=== PATIENT | male | born 1950 | race Caucasian/White ===

== ENCOUNTER 2021-03-12 01:37 | Emergency (ER) | payer OTHER ==
[~2021-03-12] VITALS: Ht 177.8 cm; Wt 79.4 kg
[2021-03-12] MEDS ORDERED: ACETAMINOPHEN 500 MG TAB PO ONE (02:00)
[2021-03-12] MEDS ORDERED: SODIUM CHLORIDE 0.9% 1,000 ML IV ONE (03:00)
[2021-03-12] MEDS ORDERED: ACETAMINOPHEN 650 MG RECT SUPP PR ONE (03:00)
[2021-03-12 03:30] LABS: Basophils # (auto) 0 10 ^3/uL (0-0.2); Eosinophils # (auto) 0 10 ^3/uL (0-0.8); Hemoglobin 19.1 g/dL (13.5-17.5); Lymphocytes # (auto) 1.2 10 ^3/uL (0.4-5.4); Red Cell Distribution Width 12.4 % (11.8-14.3); Urine Bacteria NONE SEEN /hpf (None Seen); Urine Blood 2+ /uL (Negative); Urine Specific Gravity 1.015 (1.001-1.035); Urine WBC 2 /hpf (0 - 3)
[2021-03-12] MEDS ORDERED: dilTIAZem 25 MG/5 ML VIAL IV ONE ×2 (03:30→04:00)
[2021-03-12] MEDS ORDERED: PIPERACILLIN-TAZOB 3.375GM 100 ML IV ONE (03:30)
[2021-03-12] MEDS ORDERED: VANCOMYCIN 1GM/250ML 250 ML IV ONE (03:30)
[2021-03-12 03:32] LABS: Basophils % (auto) 0.2 % (0.0-2.0); Hematocrit 54.6 % (41.0-53.0); Mean Corpuscular Hemoglobin 33.2 pg (28.0-32.0); Mean Corpuscular Volume 94.8 fL (80.0-100.0); Monocytes # (auto) 1.7 10 ^3/uL (0-1.3); Monocytes % (auto) 9.4 % (0.0-12.0); Neutrophils # (auto) 14.7 10 ^3/uL (1.6-8.6); Neutrophils % (auto) 83.4 % (37.0-80.0); Nucleated Red Blood Cells % 0.3 %; Red Blood Cells 5.76 10^6/uL (4.5-5.90); White Blood Cell 17.6 10^3/uL (4.4-10.8)
[2021-03-12 03:56] LABS: Lactic Acid w/Reflex 3.2 mmol/L (0.4-2.0)
[2021-03-12] MEDS ORDERED: dilTIAZem 125mg/125ml BAG KIT 125 ML IV ONE (04:00)
[2021-03-12 04:05] LABS: INR 1.21 (0.9-1.15)
[2021-03-12] MEDS ORDERED: PROPOFOL 100 ML IV ONE (04:09)
[2021-03-12] MEDS ORDERED: ETOMIDATE (2MG/ML) 20ML VIAL IV ONE ×2 (04:09→05:15)
[2021-03-12] MEDS ORDERED: SUCCINYLCHOLINE CHLORIDE 20 MG/ML 10ML VIAL IV ONE ×2 (04:10→05:15)
[2021-03-12 04:19] LABS: Alanine Aminotransferase 24 U/L (16-61); Alkaline Phosphatase 101 U/L (45-117); Anion Gap 12 (5-15); Aspartate Aminotransferase 34 U/L (15-37); BUN/Creatinine Ratio 18.6; Bilirubin, Total 2.6 mg/dL (0.2-1.0); Blood Urea Nitrogen 19 mg/dL (7-18); Calcium 9.8 mg/dL (8.5-10.1); Carbon Dioxide 19 mmol/L (21-32); Chloride 106 mmol/L (98-107); GFR African American 93 mL/min; GFR Non-African American 77 mL/min; Glucose 132 mg/dL (74-106); Potassium 3.6 mmol/L (3.5-5.1); Sodium 137 mmol/L (136-145); Total Protein 7.5 g/dL (6.4-8.2)
[2021-03-12 04:20] LABS: Magnesium 2.2 mg/dL (1.6-2.6)
[2021-03-12 04:44] VITALS: BP 114/78
[2021-03-12] MEDS ORDERED: ACETAMINOPHEN 650 MG RECT SUPP PR PRN (05:15)
[2021-03-12] MEDS ORDERED: VANCOMYCIN PER PHARMACY 0 MG IV SCH (05:15)
[2021-03-12] MEDS ORDERED: PROPOFOL 100 ML IV SCH (05:15)
[2021-03-12] MEDS ORDERED: DEXTROSE (50%) 50ML SYRG IV PRN (05:15)
[2021-03-12] MEDS ORDERED: ONDANSETRON HCL 4 MG/2 ML VIAL IV PRN (05:15)
[2021-03-12] MEDS ORDERED: SODIUM CHLORIDE 0.9% 1,000 ML IV SCH (05:15)
[2021-03-12] MEDS ORDERED: SODIUM CHLORIDE 0.9% 500 ML IV ONE (05:30)
[2021-03-12 06:15] VITALS: BP 116/72
[2021-03-12] MEDS ORDERED: InsuLIN REG 1unit/0.01ml Soln (100units/ml) SC SCH (07:00)
[2021-03-12] MEDS ORDERED: ACCU-CHEK COMFORT CURVE STRIP VI SCH (07:00)
[2021-03-12] MEDS ORDERED: FUROSEMIDE 20 MG/2 ML VIAL IV SCH (10:00)
[2021-03-12] MEDS ORDERED: FAMOTIDINE (10MG/ML) 2ML VL IV SCH (10:00)
[2021-03-12] MEDS ORDERED: HEPARIN SODIUM (PORCINE) 5000 UNITS/ML 1ML VIAL SC SCH (10:00)
[2021-03-12] MEDS ORDERED: PIPERACILLIN-TAZOB 3.375GM 100 ML IV SCH (14:00)
== END 2021-03-12 06:33 ==
LOC: EDBD 01:37 → ER 01:37 → EDUNIT# 01:37 → ER 06:33
DX: S06.370A Contusion, laceration, and hemorrhage of cerebellum without loss of consciousness, initial encounter (principal); A41.9 Sepsis, unspecified organism; R41.82 Altered mental status, unspecified; I48.20 Chronic atrial fibrillation, unspecified; Z20.822 Contact with and (suspected) exposure to COVID-19; W18.39XA Other fall on same level, initial encounter; Y93.89 Activity, other specified; Y92.89 Other specified places as the place of occurrence of the external cause; Y99.8 Other external cause status
CPT/HCPCS: 31500; 36415; 36600; 70450; 71045; 72125; 80053; 81001; 82805; 82962; 83605; 83735; 83880; 84484; 85025; 85379; 85610; 87040; 87070; 87086; 87205; 87426; 93005; 96361; 96365; 96367; 96368; 96375; 99291; J0330; J2543; J2704; J3370; J7030; 94002

== ENCOUNTER 2024-01-29 15:42 | Inpatient (IN) | payer MEDICARE, OTHER ==
[~2024-01-29] VITALS: Ht 177.8 cm; Wt 81.2 kg
[2024-01-29 18:37] LABS: Basophils # (auto) 0 10 ^3/uL (0-0.2); Basophils % (auto) 0.1 % (0.0-2.0); Eosinophils # (auto) 0 10 ^3/uL (0-0.8); Eosinophils % (auto) 0.1 % (0.0-7.0); Hematocrit 50.7 % (41.0-53.0); Hemoglobin 17.3 g/dL (13.5-17.5); Lymphocytes # (auto) 1.6 10 ^3/uL (0.4-5.4); Lymphocytes % (auto) 8.3 % (10.0-50.0); Mean Corpuscular Hemoglobin 33.3 pg (28.0-32.0); Mean Corpuscular Hgb Conc. 34.1 g/dL (32.0-36.0); Mean Corpuscular Volume 97.6 fL (80.0-100.0); Monocytes # (auto) 2.6 10 ^3/uL (0-1.3); Monocytes % (auto) 13.2 % (0.0-12.0); Neutrophils # (auto) 15.4 10 ^3/uL (1.6-8.6); Neutrophils % (auto) 78.3 % (37.0-80.0); Platelet Count (auto) 163 10^3/uL (140-450); Red Blood Cells 5.19 10^6/uL (4.5-5.90); White Blood Cell 19.7 10^3/uL (4.4-10.8)
[2024-01-29 18:54] LABS: Alanine Aminotransferase 178 U/L (7-40); Albumin 4.2 g/dL (3.2-4.8); Alkaline Phosphatase 109 U/L (46-116); Anion Gap 13 (5-15); Aspartate Aminotransferase 513 U/L (13-40); Bilirubin, Total 2.9 mg/dL (0.2-1.0); Blood Alcohol < 3.0 mg/dL (<10); Calcium 10.7 mg/dL (8.7-10.4); Carbon Dioxide 19 mmol/L (20-31); Chloride 116 mmol/L (98-107); Glucose 106 mg/dL (74-106); Magnesium 2.7 mg/dL (1.6-2.6); Potassium 4.5 mmol/L (3.5-5.1); Sodium 148 mmol/L (136-145); Total Protein 6.3 g/dL (5.7-8.2)
[2024-01-29 19:10] LABS: Creatine Kinase IFCC 12645 U/L (46-171)
[2024-01-29 19:15] LABS: Blood Urea Nitrogen 91 mg/dL (9-23); Lactic Acid w/Reflex 2.2 mmol/L (0.4-2.0)
[2024-01-29 19:30] VITALS: PULSE 108; RESP 22; O2SAT 93
[2024-01-29] MEDS: SODIUM CHLORIDE 0.9% 1,000 ML IV ONE ×2 (20:34)
[2024-01-29] MEDS: FUROSEMIDE 20 MG/2 ML VIAL IV ONE (20:34)
[2024-01-29] MEDS: LORazepam 2MG/ML-1ML VIAL IV ONE (21:45)
[2024-01-29] MEDS: LORazepam 2MG/ML-1ML VIAL ONE (21:45)
[2024-01-29] MEDS ORDERED: NITROGLYCERIN 0.4 MG SL TAB SL PRN (23:00)
[2024-01-29] MEDS ORDERED: ONDANSETRON HCL 4 MG/2 ML VIAL IV PRN (23:00)
[2024-01-29] MEDS ORDERED: ACETAMINOPHEN 325 MG TAB PO PRN (23:00)
[2024-01-29] MEDS ORDERED: MORPHINE SULFATE INJ 2 MG/ml SYRG IV PRN (23:00)
[2024-01-29] MEDS: SOD CHL 0.45% 1,000 ML IV SCH (23:28)
[2024-01-29] MEDS: LACTATED RINGER'S 1,000 ML IV ONE (23:28)
[2024-01-30 00:13] LABS: Alanine Aminotransferase 156 U/L (7-40); Albumin 3.7 g/dL (3.2-4.8); Alkaline Phosphatase 88 U/L (46-116); Anion Gap 11 (5-15); Aspartate Aminotransferase 418 U/L (13-40); BUN/Creatinine Ratio 25.3 (10.0-20.0); Calcium 9.3 mg/dL (8.7-10.4); Carbon Dioxide 18 mmol/L (20-31); Chloride 116 mmol/L (98-107); Glucose 98 mg/dL (74-106); Potassium 3.9 mmol/L (3.5-5.1); Sodium 145 mmol/L (136-145)
[2024-01-30 00:14] LABS: Blood Urea Nitrogen 62 mg/dL (9-23); Total Protein 5.7 g/dL (5.7-8.2)
[2024-01-30] MEDS: dilTIAZem 25 MG/5 ML VIAL IV ONE (01:33)
[2024-01-30] MEDS: dilTIAZem 125mg/125ml BAG KIT 125 ML IV SCH (02:34)
[2024-01-30] MEDS: AMIODARONE BOLUS KIT 100 ML IV ONE ×2 (03:08→07:51)
[2024-01-30] MEDS: AMIODARONE 450mg/250ml AE 250 ML IV SCH ×2 (03:15→13:31)
[2024-01-30 03:20] LABS: Urine Bacteria None Seen /hpf (None Seen)
[2024-01-30 03:43] LABS: Amphetamine Screen, Urine Neg (NEGATIVE); Barbiturate Scree,Urine Neg (NEGATIVE); Benzodiazephine Screen, Urine Neg (NEGATIVE); Cannabinoid Screen, Urine Neg (NEGATIVE); Cocaine Screen, Urine Neg (NEGATIVE); Opiate Scree,Urine Neg (NEGATIVE); Phencyclidine Screen, Urine Neg (NEGATIVE)
[2024-01-30 04:05] LABS: Urine Amorphous Crystal FEW /hpf (None Seen); Urine Blood 2+ /uL (Negative); Urine Clarity Clear (Clear); Urine Color Light-Yellow (Yellow); Urine Protein, UAD Negative (Negative); Urine Specific Gravity 1.012 (1.001-1.035); Urine Urobilinogen Normal (Negative); Urine WBC 1 /hpf (0 - 3)
[2024-01-30 04:29] LABS: Basophils # (auto) 0 10 ^3/uL (0-0.2); Basophils % (auto) 0.4 % (0.0-2.0); Eosinophils # (auto) 0.1 10 ^3/uL (0-0.8); Eosinophils % (auto) 1.2 % (0.0-7.0); Hematocrit 43.8 % (41.0-53.0); Lymphocytes # (auto) 1.5 10 ^3/uL (0.4-5.4); Lymphocytes % (auto) 12.3 % (10.0-50.0); Mean Corpuscular Hemoglobin 33.1 pg (28.0-32.0); Mean Corpuscular Hgb Conc. 34.4 g/dL (32.0-36.0); Mean Corpuscular Volume 96.4 fL (80.0-100.0); Monocytes # (auto) 1.5 10 ^3/uL (0-1.3); Monocytes % (auto) 12.3 % (0.0-12.0); Neutrophils # (auto) 9.2 10 ^3/uL (1.6-8.6); Neutrophils % (auto) 73.8 % (37.0-80.0); Nucleated Red Blood Cells % 0.1 %; Platelet Count (auto) 121 10^3/uL (140-450); Red Blood Cells 4.54 10^6/uL (4.5-5.90); Red Cell Distribution Width 12.8 % (11.8-14.3); White Blood Cell 12.5 10^3/uL (4.4-10.8)
[2024-01-30 04:47] LABS: Alanine Aminotransferase 157 U/L (7-40); Albumin 3.6 g/dL (3.2-4.8); Alkaline Phosphatase 84 U/L (46-116); Anion Gap 11 (5-15); Aspartate Aminotransferase 409 U/L (13-40); BUN/Creatinine Ratio 29.4 (10.0-20.0); Blood Urea Nitrogen 62 mg/dL (9-23); Calcium 9.3 mg/dL (8.7-10.4); Carbon Dioxide 20 mmol/L (20-31); Chloride 115 mmol/L (98-107); Glucose 88 mg/dL (74-106); Potassium 3.8 mmol/L (3.5-5.1); Sodium 146 mmol/L (136-145)
[2024-01-30 04:48] LABS: Bilirubin, Total 3.4 mg/dL (0.2-1.0); Total Protein 5.5 g/dL (5.7-8.2)
[2024-01-30] MEDS ORDERED: DIPHENOXYLATE W/ATROPINE 2.5 MG TAB PO PRN ×2 (09:00)
[2024-01-30] MEDS ORDERED: AMIODARONE 450mg/250ml AE 250 ML IV SCH (09:15)
[2024-01-30 09:38] LABS: Magnesium 2.4 mg/dL (1.6-2.6)
[2024-01-30 09:39] LABS: Phosphorus 3.8 mg/dL (2.4-5.1)
[2024-01-30 09:51] LABS: Protein, Urine 20.7 mg/dL (1-14)
[2024-01-30 09:54] LABS: Creatinine, Urine 47.77 mg/dL (30.0-125.0); Urine Protein/Creatinine Ratio 0.43
[2024-01-30] MEDS: APIXABAN 2.5 MG TAB PO SCH (10:13)
[2024-01-30] MEDS: METOPROLOL SUCCINATE XL 50 MG TAB PO SCH (10:13)
[2024-01-30 10:23] LABS: Uric Acid 9.9 mg/dL (3.7-9.2)
[2024-01-30] MEDS: SOD CHL 0.45% 1,000 ML IV SCH (13:45)
[2024-01-30] MEDS: cefTRIAXone 1GM/50ML D5W 50 ML IV ONE (14:19)
[2024-01-30 19:20] VITALS: PULSE 56; RESP 22; O2SAT 93
[2024-01-30] MEDS: ATORVASTATIN 20 MG TAB PO SCH (21:50)
[2024-01-30 23:13] VITALS: BP 129/85; PULSE 56; RESP 19; TEMP 97.8; O2SAT 97
[2024-01-31] VITALS (10 sets, daily range): BP systolic 105–135; BP diastolic 55–82; PULSE 54–82; RESP 17–19; TEMP 97.8–98.5; O2SAT 93–97
[2024-01-31 09:16] LABS: Alanine Aminotransferase 152 U/L (7-40); Albumin 3.4 g/dL (3.2-4.8); Alkaline Phosphatase 80 U/L (46-116); Anion Gap 7 (5-15); Aspartate Aminotransferase 297 U/L (13-40); BUN/Creatinine Ratio 29.8 (10.0-20.0); Bilirubin, Total 3.8 mg/dL (0.2-1.0); Calcium 9.6 mg/dL (8.7-10.4); Carbon Dioxide 24 mmol/L (20-31); Chloride 112 mmol/L (98-107); Glucose 98 mg/dL (74-106); Potassium 3.7 mmol/L (3.5-5.1); Sodium 143 mmol/L (136-145); Total Protein 5.4 g/dL (5.7-8.2)
[2024-01-31] MEDS: AMIODARONE HCL 200 MG TAB PO SCH (09:22)
[2024-01-31] MEDS: cefTRIAXone 1GM/50ML D5W 50 ML IV SCH (09:22)
[2024-01-31 09:23] LABS: Blood Urea Nitrogen 31 mg/dL (9-23)
[2024-01-31] MEDS ORDERED: AMIODARONE HCL 200 MG TAB PO SCH (10:00)
[2024-01-31] MEDS ORDERED: ATOR-507 PO (12:21)
[2024-01-31] MEDS ORDERED: MET25T PO (12:21)
[2024-01-31] MEDS ORDERED: APIX2.5T PO (12:21)
[2024-01-31] MEDS ORDERED: AMIO200T33 PO (12:21)
[2024-02-01 01:00] VITALS: BP 115/71; PULSE 54; RESP 17; TEMP 98.1; O2SAT 93
[2024-02-01 05:00] VITALS: BP 109/73; PULSE 54; RESP 19; TEMP 98.3; O2SAT 91
[2024-02-01 06:13] LABS: Basophils # (auto) 0 10 ^3/uL (0-0.2); Basophils % (auto) 0.4 % (0.0-2.0); Eosinophils # (auto) 0.2 10 ^3/uL (0-0.8); Eosinophils % (auto) 2.6 % (0.0-7.0); Hematocrit 38.8 % (41.0-53.0); Hemoglobin 13.8 g/dL (13.5-17.5); Lymphocytes # (auto) 0.8 10 ^3/uL (0.4-5.4); Lymphocytes % (auto) 11.5 % (10.0-50.0); Mean Corpuscular Hemoglobin 33.6 pg (28.0-32.0); Mean Corpuscular Hgb Conc. 35.5 g/dL (32.0-36.0); Mean Corpuscular Volume 94.6 fL (80.0-100.0); Monocytes # (auto) 0.9 10 ^3/uL (0-1.3); Monocytes % (auto) 12.2 % (0.0-12.0); Neutrophils # (auto) 5.4 10 ^3/uL (1.6-8.6); Neutrophils % (auto) 73.3 % (37.0-80.0); Platelet Count (auto) 121 10^3/uL (140-450); Red Blood Cells 4.11 10^6/uL (4.5-5.90); Red Cell Distribution Width 12.2 % (11.8-14.3); White Blood Cell 7.4 10^3/uL (4.4-10.8)
[2024-02-01 06:32] LABS: Alanine Aminotransferase 120 U/L (7-40); Albumin 3.2 g/dL (3.2-4.8); Alkaline Phosphatase 69 U/L (46-116); Anion Gap 7 (5-15); Aspartate Aminotransferase 182 U/L (13-40); BUN/Creatinine Ratio 22.8 (10.0-20.0); Blood Urea Nitrogen 21 mg/dL (9-23); Calcium 9.2 mg/dL (8.7-10.4); Carbon Dioxide 25 mmol/L (20-31); Chloride 112 mmol/L (98-107); Creatine Kinase IFCC 791 U/L (46-171); Glucose 90 mg/dL (74-106); Potassium 3.5 mmol/L (3.5-5.1); Sodium 144 mmol/L (136-145)
[2024-02-01 06:33] LABS: Bilirubin, Total 2.7 mg/dL (0.2-1.0); Total Protein 4.9 g/dL (5.7-8.2)
[2024-02-01 08:00] VITALS: PULSE 61; PULSE 67; RESP 18; O2SAT 94
[2024-02-01 08:20] VITALS: BP 121/61; PULSE 67; RESP 16; TEMP 98.2; O2SAT 91
[2024-02-01 10:26] VITALS: BP 121/61; PULSE 67; RESP 18; TEMP 36.8
[2024-02-01 12:03] VITALS: BP 103/59; PULSE 57; RESP 16; TEMP 97.5; O2SAT 93
[2024-02-03 09:52] LABS: Hepatitis B Core Total AB Negative (Negative)
[2024-02-03 11:26] LABS: Hepatitis A Total Antibody Negative (Negative); Hepatitis B Surface Antibody Negative (Negative); Hepatitis B Surface Antigen Negative (Negative); Hepatitis C Antibody Negative (Negative)
== END 2024-02-01 13:36 | disposition home or self-care (01) | DRG 871 ==
LOC: EDBD 15:42 → ER 15:52 → TELE 23:09 → TELE-EAST 01-30 22:38 → TELE-CENTR 01-30 23:53
PROVIDERS: ADMIT Nurse Practitioner; ATTEND Family Medicine
DX: A41.9 Sepsis, unspecified organism (principal); G93.41 Metabolic encephalopathy; I21.A1 Myocardial infarction type 2; M62.82 Rhabdomyolysis; N17.9 Acute kidney failure, unspecified; E87.0 Hyperosmolality and hypernatremia; E78.00 Pure hypercholesterolemia, unspecified; I10 Essential (primary) hypertension; N28.1 Cyst of kidney, acquired; K76.0 Fatty (change of) liver, not elsewhere classified; K82.8 Other specified diseases of gallbladder; I48.0 Paroxysmal atrial fibrillation; Z79.01 Long term (current) use of anticoagulants; Z79.899 Other long term (current) drug therapy
CPT/HCPCS: 36415; 70450; 71045; 72125; 74176; 76705; 76775; 80053; 80307; 80320; 81001; 82140; 82550; 82570; 82962; 83605; 83735; 83880; 84100; 84156; 84300; 84484; 84550; 85025; 86704; 86706; 86708; 86803; 87040; 87340; 93005; 93306; G0378